=== PATIENT | female | born 1940 | race Caucasian/White ===

== ENCOUNTER → 2022-06-11 09:17 | Outpatient (CLI) | payer MEDICARE, SELFPAY ==
--- NOTE | 2022-06-11 09:21 | DI.RAD.S_ITS ---
PROCEDURE: XR FOOT RT MIN 3V INDICATIONS: fall, point tender distal 5th metatarsal, 5th toe TECHNIQUE: 3 views of the foot were acquired. COMPARISON: None. FINDINGS: Bones: Cortical irregularity involving medial aspect of 5th proximal phalangeal base with radiolucency extending to 5th MTP joint space concerning for subtle nondisplaced fracture in this area. Moderate hallux valgus is seen with moderate 1st MTP joint osteoarthritic changes and prominent dorsal marginal osteophyte formation concerning for hallux limitus. No suspicious bony lesions. Soft tissues: No tibiotalar joint effusion. Achilles tendon appears normal. IMPRESSION: 1. Finding is concerning for subtle nondisplaced fracture involving medial portion of 5th proximal phalangeal base. 2. No other fracture or dislocation. 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 Dictated by: Umberto Younger M.D. on 06/11/2022 at 9:50 Approved by: Umberto Younger M.D. on 06/11/2022 at 9:51
--- NOTE | 2022-06-11 09:21 | DI.RAD.S_ITS ---
PROCEDURE: XR KNEE RT 3V INDICATIONS: fall, point tender distal 5th metatarsal, 5th toe TECHNIQUE: 3 views of the knee were acquired. COMPARISON: None. FINDINGS: Bones: No fractures or dislocations. [id number] tricompartmental osteoarthritis is seen more prominent in medial femoral tibial compartment. No suspicious bony lesions. Soft tissues: Small to moderate suprapatellar joint effusion is seen. No suspicious soft tissue calcifications. IMPRESSION: No acute right knee fracture or dislocation. [id number] tricompartmental osteoarthritis. Small to moderate joint effusion. Dictated by: Umberto Younger M.D. on 06/11/2022 at 9:49 Approved by: Umberto Younger M.D. on 06/11/2022 at 9:50
== END ==
PROVIDERS: Referring Provider Student in an Organized Health Care Education/Training Program; Visit Provider Student in an Organized Health Care Education/Training Program
DX: M20.11 Hallux valgus (acquired), right foot (principal); M19.071 Primary osteoarthritis, right ankle and foot; M17.11 Unilateral primary osteoarthritis, right knee; M25.461 Effusion, right knee; M79.671 Pain in right foot
CPT/HCPCS: 73562; 73630